=== PATIENT | female | born 1955 | race Caucasian/White ===

== ENCOUNTER 2017-03-01 14:09 | Emergency (ER) | payer MEDICAID ==
[2017-03-01 14:28] VITALS: BP 150/88
== END 2017-03-01 17:45 | disposition home or self-care (01) ==
LOC: ED 14:09
DX: S83.91XA Sprain of unspecified site of right knee, initial encounter (principal); I10 Essential (primary) hypertension; E11.9 Type 2 diabetes mellitus without complications; Z88.5 Allergy status to narcotic agent; W17.89XA Other fall from one level to another, initial encounter; Y93.89 Activity, other specified; Y99.8 Other external cause status; Y92.89 Other specified places as the place of occurrence of the external cause

== ENCOUNTER 2017-12-20 13:53 | Emergency (ER) | payer SELFPAY ==
[~2017-12-20] VITALS: Ht 149.9 cm; Wt 51.2 kg
[2017-12-20 13:57] VITALS: Ht 149.9 cm; Wt 51.2 kg
[2017-12-20 15:26] LABS: BASOPHIL % 0.3 % (0-2); PLATELET COUNT 193 x10^3mcL (130-400); RED CELL DISTRIBUTION WIDTH 12.7 % (11.5-14.5)
[2017-12-20 15:37] LABS: ALKALINE PHOSPHATASE 121 U/L (46-116); ALT/SGPT 19 U/L (14-59); AMYLASE 37 U/L (25-115); AST/SGOT 14 U/L (15-37); BILIRUBIN TOTAL 0.89 mg/dL (0.20-1.00); CALCIUM 8.6 mg/dL (8.5-10.1); CARBON DIOXIDE 25.5 mmol/L (21-32); CHLORIDE SERUM 95 mmol/L (98-107); CREATININE SERUM 0.8 mg/dL (0.6-1.0); GFR1 > 60 mL/min; LIPASE 226 IU/L (73-393); POTASSIUM SERUM 4.5 mmol/L (3.5-5.1); SODIUM SERUM 128 mmol/L (136-145); TOTAL PROTEIN, SERUM 7.1 g/dL (6.4-8.2)
[2017-12-20 15:38] LABS: ALBUMIN 3.1 g/dL (3.4-5.0)
[2017-12-20 15:40] LABS: GLUCOSE SERUM 543 mg/dL (74-106)
[2017-12-20 17:19] VITALS: BP 133/84
[2017-12-20 17:45] LABS: UA SPECIFIC GRAVITY <=1.005 (1.005-1.035); microscopic required? YES; urine erythrocyte TRACE (NEGATIVE)
== END 2017-12-20 17:54 | disposition home or self-care (01) ==
LOC: ED 13:53
PROVIDERS: Specialist
DX: R10.11 Right upper quadrant pain (principal); D72.829 Elevated white blood cell count, unspecified; E11.9 Type 2 diabetes mellitus without complications; I10 Essential (primary) hypertension; E78.00 Pure hypercholesterolemia, unspecified; Z88.5 Allergy status to narcotic agent; Z91.041 Radiographic dye allergy status
CPT/HCPCS: 83880; J1815; J1885; Q0092

== ENCOUNTER 2017-12-27 17:51 | Inpatient (IN) | payer SELFPAY ==
[~2017-12-27] VITALS: Ht 149.9 cm; Wt 50.0 kg
[2017-12-27 18:04] VITALS: Ht 149.9 cm; Wt 50.0 kg
[2017-12-27 19:55] LABS: BASOPHIL % 0.2 % (0-2); PLATELET COUNT 341 x10^3mcL (130-400); RED CELL DISTRIBUTION WIDTH 12.5 % (11.5-14.5)
[2017-12-27 20:02] LABS: CARBON DIOXIDE 26.8 mmol/L (21-32); CHLORIDE SERUM 97 mmol/L (98-107); CREATININE SERUM 0.6 mg/dL (0.6-1.0); GFR1 > 60 mL/min; GLUCOSE SERUM 303 mg/dL (74-106); POTASSIUM SERUM 3.6 mmol/L (3.5-5.1); SODIUM SERUM 132 mmol/L (136-145)
[2017-12-27 20:02] LABS: UA SPECIFIC GRAVITY <=1.005 (1.005-1.035); microscopic required? YES; urine erythrocyte 1+ (NEGATIVE)
[2017-12-27 20:07] LABS: ALKALINE PHOSPHATASE 132 U/L (46-116); ALT/SGPT 12 U/L (14-59); AST/SGOT 11 U/L (15-37); BILIRUBIN TOTAL 0.4 mg/dL (0.20-1.00); TOTAL PROTEIN, SERUM 7.3 g/dL (6.4-8.2)
[2017-12-27] MEDS ORDERED: METFORMIN HYD1000 M2 PO (21:37)
[2017-12-27 23:08] VITALS: BP 141/83
[2017-12-28 00:29] LABS: CHOLESTEROL/HDL RATIO 4.3; PHOSPHOROUS 2.6 mg/dL (2.5-4.9)
[2017-12-28 00:43] LABS: FREE T4 1.46 ng/dL (0.76-1.46)
[2017-12-28 00:44] LABS: FREE THYROXINE INDEX 4.6 ug/dL (1.4-4.5); T4(THYROXINE) 13.4 ug/dL (4.7-13.3)
[2017-12-28 00:56] LABS: T3 TOTAL 1.95 ng/mL
[2017-12-28 02:12] LABS: AMPHETAMINE QUAL UR NONE DETECTED (See below)
[2017-12-28 02:50] VITALS: BP 141/83
[2017-12-28 06:04] VITALS: BP 146/71
[2017-12-28 06:54] LABS: CALCIUM 7.7 mg/dL (8.5-10.1); CARBON DIOXIDE 25.5 mmol/L (21-32); CHLORIDE SERUM 100 mmol/L (98-107); CREATININE SERUM 0.5 mg/dL (0.6-1.0); GFR1 > 60 mL/min; GLUCOSE SERUM 200 mg/dL (74-106); MAGNESIUM 1.9 mg/dL (1.8-2.4); PHOSPHOROUS 2.4 mg/dL (2.5-4.9); POTASSIUM SERUM 3.9 mmol/L (3.5-5.1); SODIUM SERUM 135 mmol/L (136-145)
[2017-12-28 06:58] LABS: BASOPHIL % 0.2 % (0-2); PLATELET COUNT 268 x10^3mcL (130-400); RED CELL DISTRIBUTION WIDTH 12.9 % (11.5-14.5)
[2017-12-28 08:54] VITALS: BP 125/71
[2017-12-28 13:57] VITALS: BP 144/82
[2017-12-28 17:42] VITALS: BP 137/81
[2017-12-28 21:11] VITALS: BP 128/64
[2017-12-29 04:53] VITALS: BP 139/89
[2017-12-29 06:52] LABS: BASOPHIL % 0.3 % (0-2); PLATELET COUNT 302 x10^3mcL (130-400); RED CELL DISTRIBUTION WIDTH 12.4 % (11.5-14.5)
[2017-12-29 07:36] LABS: CALCIUM 8.6 mg/dL (8.5-10.1); CARBON DIOXIDE 25.3 mmol/L (21-32); CHLORIDE SERUM 103 mmol/L (98-107); CREATININE SERUM 0.6 mg/dL (0.6-1.0); GFR1 > 60 mL/min; GLUCOSE SERUM 176 mg/dL (74-106); MAGNESIUM 1.7 mg/dL (1.8-2.4); POTASSIUM SERUM 4.3 mmol/L (3.5-5.1); SODIUM SERUM 137 mmol/L (136-145)
[2017-12-29 10:20] VITALS: BP 141/79
[2017-12-29 13:35] VITALS: BP 136/71
[2017-12-29 17:37] VITALS: BP 139/80
[2017-12-29 20:57] VITALS: BP 141/79
[2017-12-30 05:27] VITALS: BP 141/83
[2017-12-30 07:18] LABS: BASOPHIL % 0.4 % (0-2); PLATELET COUNT 326 x10^3mcL (130-400); RED CELL DISTRIBUTION WIDTH 12.4 % (11.5-14.5)
[2017-12-30 07:34] LABS: CALCIUM 8.9 mg/dL (8.5-10.1); CARBON DIOXIDE 25.6 mmol/L (21-32); CHLORIDE SERUM 102 mmol/L (98-107); CREATININE SERUM 0.6 mg/dL (0.6-1.0); GFR1 > 60 mL/min; GLUCOSE SERUM 178 mg/dL (74-106); POTASSIUM SERUM 3.8 mmol/L (3.5-5.1); SODIUM SERUM 137 mmol/L (136-145)
[2017-12-30 09:04] VITALS: BP 120/68
[2017-12-30] MEDS ORDERED: NAPROXEN500 MG PO (09:29)
[2017-12-30] MEDS ORDERED: LEVAQUIN750 MG PO (09:38)
[2017-12-30 12:41] VITALS: BP 143/74
[2017-12-30] MEDS ORDERED: LAC PO (13:17)
[2017-12-30 13:33] VITALS: BP 143/74
[2017-12-30 13:44] VITALS: BP 143/74
== END 2017-12-30 14:35 | disposition home or self-care (01) | DRG 690 ==
LOC: ED 17:51 → DU 21:58
PROVIDERS: Emergency Medicine; Family Medicine
DX: N10 Acute pyelonephritis (principal); E46 Unspecified protein-calorie malnutrition; I10 Essential (primary) hypertension; Z88.6 Allergy status to analgesic agent; Z88.3 Allergy status to other anti-infective agents; E78.00 Pure hypercholesterolemia, unspecified; E11.65 Type 2 diabetes mellitus with hyperglycemia; J45.909 Unspecified asthma, uncomplicated; E02 Subclinical iodine-deficiency hypothyroidism; Z68.21 Body mass index [BMI] 21.0-21.9, adult
CPT/HCPCS: 83880; 84439; J1885; J1956; J2405; J7030; Q0092